=== PATIENT | female | born 1965 | race Caucasian/White ===

== ENCOUNTER 2023-10-16 16:01 | Emergency (ER) | payer SELFPAY ==
[2023-10-16] VITALS (17 sets, daily range): BP systolic 140–173; BP diastolic 85–96
--- NOTE | 2023-10-16 20:01 | ED.GENMED ---
History of Present Illness
<Gerri Ballesteros MD, Resident - Last Filed: 10/16/23 21:07>
General
Chief Complaint: Musculo-Skeletal Complaint
Source: patient
Time Seen by Provider: 10/16/23 17:10
History of Present Illness
History of Present Illness:
58-year-old female, Ms. Heather Arciniega presented to the ER after a fall on outstretched arm. Patient was walking on the road and she tripped over and fell. Patient has visible dislocation of the right wrist with swelling and pain. No associated
trauma anywhere else on the body except for mild abrasions on the right elbow. Patient did not hit her head during the fall, no lightheadedness/dizziness. Patient is not on any blood thinners.
Past History
<Gerri Ballesteros MD, Resident - Last Filed: 10/16/23 21:07>
Past History
ED Past Medical History: None
Social History
Tobacco: Non-smoker
Alcohol: None
Drug: None
Personal:
Living: alone
Employment: Not employed
Review of Systems
<Gerri Ballesteros MD, Resident - Last Filed: 10/16/23 21:07>
Review of Systems
All Other Systems: ROS reviewed and negative except as documented in HPI and ROS
Phy Exam
<Gerri Ballesteros MD, Resident - Last Filed: 10/16/23 21:07>
Physical Exam
Physical Exam:
GEN: Well appearing
Eyes: PERRLA, EOMs intact, no scleral icterus
HENT: NCAT, oral mucosa moist, no JVD, no cervical adenopathy.
Lungs: CTAB, no wheezes, rales, rhonchi, normal chest wall excursion
Cardiac: RRR, no M/R/G, no peripheral edema. Radial pulses 2+ bilat
Abdomen: S, NT, ND, NABS, no masses or hepatosplenomegaly
Neuro: AO x 3, no focal deficits to BUE/BLE, normal sensation throughout
MSK: Dislocation of the right wrist. Swelling+, range of motion restricted due to pain. Elbow joint normal. Distal neurovasculature intact. No loss of sensation.
Skin: No rashes, petechiae. Normal color, no pallor or jaundice.
Psych: Calm, cooperative, proper hygiene
Course
<Gerri Ballesteros MD, Resident - Last Filed: 10/16/23 21:07>
Orders/Labs/Results
Orders:
Orders
10/16/23 16:04
Wrist, Right 3 Views [CR Wrist - Right Min 3 Views] Urgent
Comment:
Reason For Exam: patient fell injuring her right wrist
10/16/23 19:13
Propofol [Diprivan] 20 ml .ROUTE .STK-MED
10/16/23 19:52
CR Wrist - Right Min 2 Views Urgent
Comment:
Reason For Exam: post reduction
Vital Signs
Initial and Last Documented VS:
Initial Vital Signs
Temp Pulse Resp BP Pulse Ox
97.9 F 94 17 173/96 99
10/16/23 16:05 10/16/23 16:05 10/16/23 16:05 10/16/23 16:05 10/16/23 16:05
Last Documented Vital Signs
Temp Pulse Resp BP Pulse Ox
98.6 F 77 15 166/96 98
10/16/23 19:55 10/16/23 21:00 10/16/23 21:00 10/16/23 21:00 10/16/23 21:00
<Teo Branch DO - Last Filed: 10/17/23 12:01>
Orders/Labs/Results
Orders:
Orders
10/16/23 16:04
Wrist, Right 3 Views [CR Wrist - Right Min 3 Views] Urgent
Comment:
Reason For Exam: patient fell injuring her right wrist
10/16/23 19:13
Propofol [Diprivan] 20 ml .ROUTE .STK-MED
10/16/23 19:52
CR Wrist - Right Min 2 Views Urgent
Comment:
Reason For Exam: post reduction
Vital Signs
Initial and Last Documented VS:
Initial Vital Signs
Temp Pulse Resp BP Pulse Ox
97.9 F 94 17 173/96 99
10/16/23 16:05 10/16/23 16:05 10/16/23 16:05 10/16/23 16:05 10/16/23 16:05
Last Documented Vital Signs
Temp Pulse Resp BP Pulse Ox
98.6 F 77 15 166/96 98
10/16/23 19:55 10/16/23 21:00 10/16/23 21:00 10/16/23 21:00 10/16/23 21:00
Procedures
<Gerri Ballesteros MD, Resident - Last Filed: 10/16/23 21:07>
Moderate Sedation
ASA Risk Score: Class II
Chart and allergies reviewed: Yes
Consent for anesthesia obtained: Yes
Time out completed (validating right patient & procedure): Yes
Moderate Sedation Start Time(when first medication is given): 19:49
History of difficult intubation: No
Airway free of obstruction: Yes
Patient has a gag reflex: Yes
Patient is able to open mouth: Yes
Patient has no dentures: Yes
Patient has no loose teeth: Yes
Medication administered by Provider during Moderate Sedation: IV Propofol (mg)
Total dose administered: 80
Time drug administered: 19:49
Moderate Sedation Procedure End Time: 19:55
Splint Check
Splint checked by provider?: Yes
Joint/Fracture Reduction
Right Wrist:
Indication for procedure:: Comminuted, displaced distal radial fracture with dorsal angulation
Consent form signed: Yes
Joint reduced: with anesthesia sedation
Post reduction exam: stable
Capillary Refill: normal
Normal distal neurovascular exam?: Yes
Peripheral Pulses: radial (right): 2+
<Teo Branch, DO - Last Filed: 10/17/23 12:01>
Moderate Sedation
Moderate Sedation Procedure End Time: 19:59
<Gerri Ballesteros MD, Resident - Last Filed: 10/16/23 21:07>
MDM/Problems Addressed
Differential Diagnosis Includes:
Right distal radius fracture.
MDM/Problems Addressed:
X-ray right wrist showed evidence of comminuted, displaced distal radial fracture with dorsal angulation. There is an accompanying distal ulnar fracture. No skin involvement /Open wound.
Plan for reduction of the fracture/dislocation. Initially tried hematoma block but not successful.
Plan for moderate sedation with propofol.
Please see procedure note.
Right forearm splinted after reduction.
Postprocedure x-ray showed evidence of fracture reduction.
Patient is hemodynamically stable and can be discharged home.
Procedural instructions given.
Follow-up with orthopedics, Dr. Morgan Farrell within a week.
<Gerri Ballesteros MD, Resident - Last Filed: 10/16/23 21:07>
*Critical Care Note
Total Time (30-74mins, 75-104mins- exclusive of procedures): Not Applicable
ED Attending Note
<Gerri Ballesteros MD, Resident - Last Filed: 10/16/23 21:07>
-
Portions of this chart may have been created with voice recognition software.� Occasional wrong word or��sound alike� substitutions may have occurred due to the inherent limitations of voice recognition software.
<Teo Branch, - Last Filed: 10/17/23 12:01>
ED Attending Note
Patient seen and examined by attending physician: Yes
I performed a history and physical exam of patient and discussed management with resident, I reviewed resident's note and agree with documented findings and plan of care.: Yes
ED Attending Note:
58-year-old female presents after suffering a fall and injuring her right wrist. Patient is right-hand dominant. No other injuries.
Physical exam
Awake alert and oriented x 3, no acute distress
Head: Atraumatic
Neck: No midline tenderness palpation
Right upper extremity: Obvious deformity at the right wrist. There is swelling and significant tenderness to palpation. Cap refill is less than 5 seconds in all digits of the right hand. Sensation is intact.
Right wrist films show distal radius fracture with significant dorsal angulation.
A hematoma block was initially placed but we did not provide adequate anesthesia to allow reduction. Therefore procedural sedation was provided. The patient had a preprocedure evaluation which showed a Mallampati score of 2. Her ASA
classification is 2. Patient was sedated using a total of 80 mg of propofol. She tolerated the sedation very well. I was present for the procedural sedation and fracture reduction.
Distal radius fracture was reduced using traction and manual reduction. This appeared to provide adequate reduction. A sugar-tong splint was placed. Post splint placement the patient continued to have good sensation and capillary refill.
Discharge Plan
Departure
Patient Disposition: Home (Routine Discharge)
Date of Disposition: 10/16/23
Time of Disposition: 21:00
Patient with high blood pressure during this ER visit?: Yes
Discharge Problem:
Colles fracture reduction right wrist, Procedural sedation
Instructions: Wrist Fracture (DC), Splint Care, BLOOD PRESSURE
Prescriptions:
New
oxycodone 5 mg tablet
5 mg PO Q6H PRN (Reason: Pain) Qty: 12 0RF
Referrals:
NONE,* [Family Provider] -
Activity Restrictions/Additional Instructions:
No driving for 24 hours
Oxycodone, acetaminophen for pain as needed.
Follow-up with orthopedics Dr. Morgan Farrell within a week.
Interventions
Interventions:
*Risk Screen - Suicide Last Done: 10/16/23 16:05
*General Assessment Last Done: 10/16/23 16:05
*Neglect/Abuse Screening Last Done: 10/16/23 16:05
*Nursing Disposition Last Done: 10/16/23 21:52
ED-Musculoskeletal Assessment Last Done: 10/16/23 16:27
Discharge Date and Time
Discharge Date/Time: 10/16/23 21:53
Print Language: MAURITANIAN
== END 2023-10-16 21:53 | disposition home or self-care (01) ==
LOC: EMR 16:01
PROVIDERS: EMERGENCY PHYSICIAN Emergency Medicine
DX: S52.531A Colles' fracture of right radius, initial encounter for closed fracture (principal); S50.311A Abrasion of right elbow, initial encounter; W01.0XXA Fall on same level from slipping, tripping and stumbling without subsequent striking against object, initial encounter; Y93.01 Activity, walking, marching and hiking; R03.0 Elevated blood-pressure reading, without diagnosis of hypertension
CPT/HCPCS: 25565; 99285; 99152; 73100; 73110